=== PATIENT | female | born 2000 | race Two or more races ===

== ENCOUNTER 2020-07-30 16:07 | Emergency (ER) | payer MEDICAID, OTHER ==
[~2020-07-30] VITALS: Ht 172.7 cm; Wt 108.0 kg
[2020-07-30] MEDS ORDERED: traMADol HCL 50 MG TAB PO ONE (17:00)
[2020-07-30 19:55] VITALS: BP 128/71
== END 2020-07-30 20:11 | disposition home or self-care (01) ==
LOC: ER 16:07 → EDBD 16:07 → ER 20:11
DX: S02.2XXA Fracture of nasal bones, initial encounter for closed fracture (principal); H93.12 Tinnitus, left ear; G93.0 Cerebral cysts; Y04.2XXA Assault by strike against or bumped into by another person, initial encounter; Y93.89 Activity, other specified; Y92.89 Other specified places as the place of occurrence of the external cause; Y99.8 Other external cause status
CPT/HCPCS: 70450; 72125